=== PATIENT | male | born 1985 | race Caucasian/White ===

== ENCOUNTER 2021-12-28 09:45 | Emergency (ER) | payer OTHER, SELFPAY ==
[2021-12-28 09:55] VITALS: BP 174/108; PULSE 99; RESP 18; TEMP 36.7; O2SAT 100
--- NOTE | 2021-12-28 09:56 | ED.URI ---
HPI - URI/Sore Throat General Chief Complaint: Upper Respiratory Infection Stated Complaint: Sore Throat Time Seen by Provider: 12/28/21 10:00 History of Present Illness HPI Narrative: 36-year-old male presented for complaint of sore throat x3 days, with associated RAMÍREZ, body aches and nausea last night. He endorses a history of strep throat, has not had it for about 3 years. He has been gargling warm salt water and taking Tylenol. He denies sick contacts. Related Data Home Medications Medication Instructions Recorded Confirmed No Home Medications 12/28/21 12/28/21 Review of Systems Review of Systems: EYES: Denies visual changes, redness, or discharge. ENT: Denies rhinorrhea, congestion, or otalgia. CARDIOVASCULAR: Denies chest pain, palpitations, or edema. RESPIRATORY: Denies dyspnea. GASTROINTESTINAL: Denies abdominal pain, vomiting, or diarrhea. SKIN: Denies rash, itching, or wounds. MUSCULOSKELETAL: Denies back pain, joint pain Exam Narrative: GENERAL: well-appearing EYES: conjunctivae clear ENT: Mucous membranes moist. Oropharynx erythematous without lesions. Tonsils enlarged and without exudate. No drooling, no hoarseness, no trismus, uvula midline. No tripod positioning, hot potato voice, or soft palate swelling. NECK: Supple. right anterior lymphadenopathy CHEST: Clear to auscultation, breath sounds equal. HEART: Regular rate and rhythm. No murmur heard. SKIN: Warm, dry, no rash. NEURO: Alert and oriented x3. Course Course Emergency Course: Patient is aware of diagnosis, understands and agrees to treatment plan. Anticipatory guidance given. Patient agrees to follow-up as directed and is aware of reasons to seek care at the emergency department. Portions of this record may have been created with voice recognition software Level of Care: Express Care Visit MDM - URI/Sore Throat MDM Narrative Medical decision making narrative: Strep negative. Advised supportive measures and signs/symptoms to go to the ER. Pt is appropriate for outpt treatment and f/u. Differential Diagnosis Differential diagnosis: Likely upper respiratory infection, viral infection and pharyngitis Lab Data Labs: Strep Screen Presumptive Negative *(Reference Range: Negative)* Discharge Plan Discharge Clinical Impression: Pharyngitis Qualifiers: Pharyngitis/tonsillitis etiology: unspecified etiology Qualified Code(s): J02.9 - Acute pharyngitis, unspecified Patient Disposition: Home, Self-Care Condition: Stable Instructions: Antibiotic Form, Pharyngitis (ED) Additional Instructions: Rapid strep swab was negative today You will be notified in a few days if the culture comes back positive for strep, and appropriate antibiotics will be called in at that time. if symptoms are due to a viral illness, it is not treated with antibiotics. Viral symptoms can be present for up to 10-14 days. Tylenol 1000mg every 8 hours as needed for pain/fever Soft foods, cool liquids, warm tea. Gargle with warm saltwater twice a day. Chloraseptic spray and throat lozenges as needed. Rest and stay hydrated. --Follow up with your PCP if symptoms are not improving, or sooner if symptoms are worsening. Go to the ER immediately if you cannot swallow your saliva, trouble breathing/wheezing, throat swelling, pain is persistent and severe Prescriptions: No Action No Home Medications Follow-up/Referrals: Jesse,German Mosquera MD [Primary Care Provider] - Time of Disposition: 10:21
== END 2021-12-28 10:31 | disposition home or self-care (01) ==
PROVIDERS: Emergency Provider Nurse Practitioner Family; PCP Family Medicine
DX: J02.9 Acute pharyngitis, unspecified (principal)
CPT/HCPCS: 87081; 87880; 99203; G0463

== ENCOUNTER 2023-05-17 10:46 | Emergency (ER) | payer OTHER, SELFPAY ==
--- NOTE | 2023-05-17 11:03 | ECG_ITS ---
Measurements Intervals [place] Rate: 101 P: 61 MI: 137 QRS: 38 QRSD: 97 T: 56 QT: 331 QTc: 431 Interpretive Statements SINUS TACHYCARDIA MINIMAL Q WAVES- INFERIOR LEADS BASELINE ARTIFACT- I, III, AVL BORDERLINE ECG NO PREVIOUS ECG AVAILABLE FOR COMPARISON Electronically Signed On 05-17-2023 11:29:58 MILKING MACHINE MECHANIC by Gene Greenfield D.O.
--- NOTE | 2023-05-17 11:06 | ED.GENADULT ---
HPI - General Adult General Chief complaint: Dizziness Stated complaint: Dizziness Time Seen by Provider: 05/17/23 11:06 Source: patient, RN notes reviewed and old records reviewed Mode of arrival: ambulatory Limitations: no limitations History of Present Illness HPI narrative: 37-year-old male presents to the [facility] with complaints of dizziness for the last 2-3 days. States it feels like he is walking around drunk. Unable to work. States he has had some sinus congestion lately. Patient reports a very distant history of hypertension, has never taken medication. Denies any chest pain. Occasional shortness of breath. Denies fevers Onset (ago): day(s) (2-3) Related Data Home Medications Medication Instructions Recorded Confirmed No Home Medications 12/28/21 05/17/23 Allergies Allergy/AdvReac Type Severity Reaction Status Date / Time No Known Allergies Allergy Verified 05/17/23 11:05 Review of Systems Review of Systems: All systems reviewed & are unremarkable except as noted in HPI and below Constitutional: Constitutional: Reports no additional constitutional complaints Eyes: Eyes: Reports no additional eye complaints ENT: Reports system reviewed and no additional complaints, except as documented Cardiovascular: Cardiovascular: Reports no additional cardiovascular complaints, Denies chest pain and Denies dyspnea Respiratory: Respiratory: Reports no additional respiratory complaints, Denies chest congestion, Denies cough and Denies dyspnea Gastrointestinal: Gastrointestinal: Reports no additional gastrointestinal complaints, Denies abdominal pain, Denies nausea and Denies vomiting Musculoskeletal: Musculoskeletal: Reports no additional musculoskeletal complaints Integumentary/Breasts: Skin/Breast: Reports system reviewed and no additional complaints, except as docu Neurologic: Reports as per HPI and Reports dizziness Psychiatric: Psychiatric: Reports no additional psychiatric complaints Allergic/Immunologic: Allergic/Immunologic: Reports no additional allergic/immunologic complaints PMFSH Comments At the time of my signature, I reviewed and agree with the nursing past medical, surgical, social, and family history. There is no relevant family history pertinent to the patient complaint. Exam Const: General: cooperative, healthy appearing, comfortable, no acute distress, well developed, alert and well nourished Nutritional Appearance: well nourished Orientation/consciousness: patient oriented x3 Limitations: no limitations HENMT: Head: normal to inspection Ears: hearing grossly normal bilaterally, external ears normal, TM's normal bilaterally, EAC's normal, mastoids normal and no periauricular adenopathy Face/Nose/Sinus: Normal external nose present, Normal nares present, Normal nasal mucous membranes and turbinates present, normal facial exam and face symmetric Face and sinus: normal facial exam and face symmetric Mouth: Yes Normal oral and palatal mucosa present, Yes lip normal and Yes moist mucous membranes Throat: posterior oropharynx normal and uvula midline Eyes: General: appearance normal, both eyes and all related structures Alignment and Position: alignment normal Periorbital: periorbital findings normal Pupils: Equal, round and reactive pupils present EOM: EOMs intact bilaterally Neck: Neck: normal visual inspection, full ROM, no lymphadenopathy and no meningeal signs Chest: Chest palpation & inspection: normal inspection of the chest Resp: Effort & Inspection: normal respiratory effort and able to speak in complete sentences Auscultation: clear to auscultation bilaterally, no crackles, no rales, no rhonchi and no wheezes Cardio: Rate: regular rate Rhythm: regular rhythm Back/Spine/Pelvis: Cervical Spine: cervical ROM normal Skin: General skin exam: normal color and no rashes or lesions noted Lesions: no lesions Rashes: no rashes Wounds: no wounds Neuro: General: patient orient
[2023-05-17 11:10] VITALS: BP 209/117; PULSE 112; RESP 16; TEMP 37; O2SAT 100
== END 2023-05-17 11:14 | disposition short-term general hospital (02) ==
PROVIDERS: Emergency Provider Nurse Practitioner
DX: R42 Dizziness and giddiness (principal); R03.0 Elevated blood-pressure reading, without diagnosis of hypertension
CPT/HCPCS: 93005; 99213; G0463

== ENCOUNTER 2023-05-17 11:36 | Emergency (ER) | payer OTHER, SELFPAY ==
[2023-05-17] VITALS (12 sets, daily range): BP systolic 163–209; BP diastolic 114–136; PULSE 79–100; RESP 14–18; TEMP 36.2; O2SAT 97–100
--- NOTE | ~2023-05-17 | XR_ITS ---
XR chest 2V DATE: 05/17/2023 14:14 INDICATION: Cough, congestion, hypertension TECHNIQUE: PA and lateral views COMPARISON: None FINDINGS: Normal heart size. No hilar or mediastinal enlargement. No pulmonary infiltrate or consolid ation, pleural effusion or pulmonary vascular congestion or pneumothorax is detected. There is minimal thoracolumbar dextroscoliosis. There is gaseous distention of the included hepatic flexure, transverse colon, splenic flexure and pr oximal descending colon. No abnormal dilatation of the colon is noted. No intraperitoneal free air is detected. IMPRESSION: No active cardiopulmonary disease Reviewed, dictated and finalized at location L. ER OPERATOR
--- NOTE | ~2023-05-17 | CT_ITS ---
EXAMINATION: CT brain wo con DATE: 05/17/2023 14:10 INDICATION: Headache. TECHNIQUE: Computed tomography (CT) of the head was performed without intravenous contrast. The mA wa s adjusted according to patient size. Iterative reconstruction technique was employed. The dose-lengt h product was 605.33 mGy-cm. COMPARISON: None FINDINGS: There is no intracranial hemorrhage, acute infarction, or abnormal intracranial mass lesion . The ventricles are normal in size. The orbits are normal. There is mucosal thickening in the parana narciso sinuses. The mastoid air cells are normal. IMPRESSION: 1. Normal brain. Reviewed, dictated and finalized at location A. ER DEPARTMENT MANAGER IMPRESSION: 1. Normal brain.
--- NOTE | 2023-05-17 13:55 | ED.GENADULT ---
HPI - General Adult General Chief complaint: Recheck/Abnormal Lab/Rx Stated complaint: blood pressure issue Time Seen by Provider: 05/17/23 20:37 History of Present Illness HPI narrative: José Miguel Ch is a 37 y/o male with reported hx of HTN dx 5 years ago, has been off of medication for 3- 4years. He went to an today because he felt light headed/foggy thought he had sinus infection and his b/p was elevated and he was sent here. He reports of having chest heaviness off and on since yesterday along with shortness of breath He reports feeling headache today and felt dizzy and light headed. Related Data Allergies Allergy/AdvReac Type Severity Reaction Status Date / Time No Known Allergies Allergy Verified 05/17/23 11:44 Course Vital Signs Vital signs: Vital Signs Temperature 36.2 C L 05/17/23 11:41 Pulse Rate 100 05/17/23 11:41 Respiratory Rate 14 05/17/23 11:41 Blood Pressure 209/136 H 05/17/23 11:41 Pulse Oximetry 100 05/17/23 11:41 Oxygen Delivery Room Air 05/17/23 11:41 Temperature 36.2 C L 05/17/23 11:41 Pulse Rate 79 05/17/23 21:52 Respiratory Rate 15 05/17/23 21:52 Blood Pressure 163/114 H 05/17/23 21:52 Pulse Oximetry 100 05/17/23 21:52 Oxygen Delivery Room Air 05/17/23 20:53 Medical Decision Making Vital Signs Vital Signs: Vital Signs Temperature 36.2 C L 05/17/23 11:41 Pulse Rate 100 05/17/23 11:41 Respiratory Rate 14 05/17/23 11:41 Blood Pressure 209/136 H 05/17/23 11:41 Pulse Oximetry 100 05/17/23 11:41 Oxygen Delivery Room Air 05/17/23 11:41 Temperature 36.2 C L 05/17/23 11:41 Pulse Rate 79 05/17/23 21:52 Respiratory Rate 15 05/17/23 21:52 Blood Pressure 163/114 H 05/17/23 21:52 Pulse Oximetry 100 05/17/23 21:52 Oxygen Delivery Room Air 05/17/23 20:53 Lab Data 05/17/23 14:44 05/17/23 14:44 Labs: Lab Results 05/17/23 05/17/23 Range/Units 14:44 18:27 WBC 8.6 (4.5-10.0) K/mm3 RBC 5.54 (4.6-6.20) M/mm3 Hgb 16.0 (14.0-18.0) g/dL Hct 47.8 (42.0-52.0) % MCV 86.3 (80-100) fl MCH 28.9 (26-34) pg MCHC 33.5 (32-36) g/dl RDW 12.7 (11.5-14.5) % Plt Count 279 (150-375) k/mm3 MPV 9.2 (7.4-10.4) fl Immature Gran % (Auto) 0.3 (0-0.5) % Neut % (Auto) 65.4 (45.5-73.1) % Lymph % (Auto) 26.5 (18.3-44.2) % [place] % (Auto) 7.0 (2.6-8.5) % Eos % (Auto) 0.7 (0-4.4) % Baso % (Auto) 0.1 L (0.2-1.2) % Lymph # (Auto) 2.28 (0.9-3.2) K/mm3 [place] # (Auto) 0.6 (0.1-0.6) K/mm3 Eos # (Auto) 0.1 (0-0.3) K/mm3 Baso # (Auto) 0.0 (0.0-0.1) K/mm3 Abs Immat Gran (auto) 0.03 (0.00-0.031) K/mm3 Absolute Neuts (auto) 5.6 (1.3-6.7) K/mm3 Absolute Nucleated RBC 0.0 (0.0-0.012) K/mm3 Nucleated RBC % 0.0 (0.0-0.2) % Sodium Cancelled Potassium Cancelled Chloride Cancelled Carbon Dioxide Cancelled Anion Gap Cancelled BUN Cancelled Creatinine Cancelled Estim Creat Clear Calc Cancelled Estimated GFR Cancelled Glucose Cancelled Calcium Cancelled Total Bilirubin Cancelled AST Cancelled ALT Cancelled Alkaline Phosphatase Cancelled Troponin I < 0.012 < 0.012 (0.000-0.034) ng/mL Total Protein Cancelled Albumin Cancelled Lipase Cancelled Urine Color Yellow (Yellow) Urine Appearance Clear (Clear) Urine pH 5.5 (5.0-9.0) Ur Specific [place] 1.013 (1.001-1.035) Urine Protein Negative (Negative) mg/dL Urine Glucose (UA) Negative (Negative) mg/dL Urine Ketones Negative (Negative) mg/dL Ur Blood (Man) Negative (Negative) Urine Nitrate Negative (Negative) Urine Bilirubin Negative (Negative) Urine Urobilinogen 0.2 (<2.0) mg/dL Leukocyte Esterase Rfl Negative (Negative) MU/UL Discharge Plan Discharge Clinical Impression: Hypertension, Sinusitis Patient Disposition: Home, Self-Care
--- NOTE | 2023-05-17 13:59 | ECG_ITS ---
Measurements Intervals [place] Rate: 80 P: 45 DC: 130 QRS: 31 QRSD: 92 T: 69 QT: 365 QTc: 424 Interpretive Statements SINUS RHYTHM DELAYED PRECORDIAL R/S TRANSITION BORDERLINE ECG COMPARED TO ECG 05/17/2023 11:08:11 SINUS RHYTHM NOW PRESENT Electronically Signed On 05-17-2023 14:57:34 TELECOMMUNICATOR by Gene Greenfield D.O.
[2023-05-17 14:53] LABS: Basophils Percent Auto 0.1 % (0.2-1.2); Eosinophils Absolute Auto 0.1 K/mm3 (0-0.3); Eosinophils Percent Auto 0.7 % (0-4.4); Hematocrit 47.8 % (42.0-52.0); Immature Granulocyte Absolute 0.03 K/mm3 (0.00-0.031); Immature Granulocyte Percent A 0.3 % (0-0.5); Lymphocytes Absolute Auto 2.28 K/mm3 (0.9-3.2); Lymphocytes Percent Auto 26.5 % (18.3-44.2); Mean Corpuscular HGB Conc 33.5 g/dl (32-36); Mean Corpuscular Hemoglobin 28.9 pg (26-34); Mean Corpuscular Volume 86.3 fl (80-100); Mean Platelet Volume 9.2 fl (7.4-10.4); Monocytes Absolute Auto 0.6 K/mm3 (0.1-0.6); Neutrophils Absolute Auto 5.6 K/mm3 (1.3-6.7); Neutrophils Percent Auto 65.4 % (45.5-73.1); Platelet Count Result 279 k/mm3 (150-375); Red Blood Count 5.54 M/mm3 (4.6-6.20); Red Cell Distribution Width 12.7 % (11.5-14.5); White Blood Count 8.6 K/mm3 (4.5-10.0)
[2023-05-17 15:15] LABS: Troponin I < 0.012 ng/mL (0.000-0.034)
[2023-05-17 18:37] LABS: Appearance Urine Clear (Clear); Bilirubin Urine Negative (Negative); Blood Urine Negative (Negative); Color Urine Yellow (Yellow); Glucose Urine UA Negative (Negative); Ketones Urine Negative (Negative); Leukocyte Esterase Ur Negative LEU/UL (Negative); Nitrate Urine Negative (Negative); Protein Urine Negative (Negative); Specific Grav Ur 1.013 (1.001-1.035); Urobilinogen Urine 0.2 mg/dL (<2.0); pH Urine 5.5 (5.0-9.0)
[2023-05-17 18:41] LABS: Add Urine Microscopic? NO
[2023-05-17 18:58] LABS: Troponin I < 0.012 ng/mL (0.000-0.034)
--- NOTE | 2023-05-17 20:44 | ED.GENADULT ---
HPI - General Adult General Chief complaint: Recheck/Abnormal Lab/Rx Stated complaint: blood pressure issue Time Seen by Provider: 05/17/23 20:37 History of Present Illness HPI narrative: Pt sent to the ER from [facility] for HTN. Only complaint was sinus congestion for past 5 days.Pt has a h/o HTN and was on meds. Has been off BP meds for 4 years. Unsure what his BP is. Unsure was previous BP medication was. c/o mild sob and feeling off. Last took sudafed yesterday. Related Data Allergies Allergy/AdvReac Type Severity Reaction Status Date / Time No Known Allergies Allergy Verified 05/17/23 11:44 Review of Systems Review of Systems: ROS neg except for what is documented in the HPI Course Vital Signs Vital signs: Vital Signs Temperature 36.2 C L 05/17/23 11:41 Pulse Rate 100 05/17/23 11:41 Respiratory Rate 14 05/17/23 11:41 Blood Pressure 209/136 H 05/17/23 11:41 Pulse Oximetry 100 05/17/23 11:41 Oxygen Delivery Room Air 05/17/23 11:41 Temperature 36.2 C L 05/17/23 11:41 Pulse Rate 91 05/17/23 14:34 Respiratory Rate 16 05/17/23 14:34 Blood Pressure 194/126 H 05/17/23 14:34 Pulse Oximetry 100 05/17/23 14:34 Oxygen Delivery Room Air 05/17/23 11:41 Medical Decision Making Vital Signs Vital Signs: Vital Signs Temperature 36.2 C L 05/17/23 11:41 Pulse Rate 100 05/17/23 11:41 Respiratory Rate 14 05/17/23 11:41 Blood Pressure 209/136 H 05/17/23 11:41 Pulse Oximetry 100 05/17/23 11:41 Oxygen Delivery Room Air 05/17/23 11:41 Temperature 36.2 C L 05/17/23 11:41 Pulse Rate 91 05/17/23 14:34 Respiratory Rate 16 05/17/23 14:34 Blood Pressure 194/126 H 05/17/23 14:34 Pulse Oximetry 100 05/17/23 14:34 Oxygen Delivery Room Air 05/17/23 11:41 Lab Data 05/17/23 14:44 05/17/23 14:44 Labs: Lab Results 05/17/23 05/17/23 Range/Units 14:44 18:27 WBC 8.6 (4.5-10.0) K/mm3 RBC 5.54 (4.6-6.20) M/mm3 Hgb 16.0 (14.0-18.0) g/dL Hct 47.8 (42.0-52.0) % MCV 86.3 (80-100) fl MCH 28.9 (26-34) pg MCHC 33.5 (32-36) g/dl RDW 12.7 (11.5-14.5) % Plt Count 279 (150-375) k/mm3 MPV 9.2 (7.4-10.4) fl Immature Gran % (Auto) 0.3 (0-0.5) % Neut % (Auto) 65.4 (45.5-73.1) % Lymph % (Auto) 26.5 (18.3-44.2) % [place] % (Auto) 7.0 (2.6-8.5) % Eos % (Auto) 0.7 (0-4.4) % Baso % (Auto) 0.1 L (0.2-1.2) % Lymph # (Auto) 2.28 (0.9-3.2) K/mm3 [place] # (Auto) 0.6 (0.1-0.6) K/mm3 Eos # (Auto) 0.1 (0-0.3) K/mm3 Baso # (Auto) 0.0 (0.0-0.1) K/mm3 Abs Immat Gran (auto) 0.03 (0.00-0.031) K/mm3 Absolute Neuts (auto) 5.6 (1.3-6.7) K/mm3 Absolute Nucleated RBC 0.0 (0.0-0.012) K/mm3 Nucleated RBC % 0.0 (0.0-0.2) % Sodium Cancelled Potassium Cancelled Chloride Cancelled Carbon Dioxide Cancelled Anion Gap Cancelled BUN Cancelled Creatinine Cancelled Estim Creat Clear Calc Cancelled Estimated GFR Cancelled Glucose Cancelled Calcium Cancelled Total Bilirubin Cancelled AST Cancelled ALT Cancelled Alkaline Phosphatase Cancelled Troponin I < 0.012 < 0.012 (0.000-0.034) ng/mL Total Protein Cancelled Albumin Cancelled Lipase Cancelled Urine Color Yellow (Yellow) Urine Appearance Clear (Clear) Urine pH 5.5 (5.0-9.0) Ur Specific [place] 1.013 (1.001-1.035) Urine Protein Negative (Negative) mg/dL Urine Glucose (UA) Negative (Negative) mg/dL Urine Ketones Negative (Negative) mg/dL Ur Blood (Man) Negative (Negative) Urine Nitrate Negative (Negative) Urine Bilirubin Negative (Negative) Urine Urobilinogen 0.2 (<2.0) mg/dL Leukocyte Esterase Rfl Negative (Negative) MU/UL Discharge Plan Discharge Clinical Impression: Hypertension Qualifiers: Hypertension type: unspecified Qualified Code(s): I10 - Essential (primary) hyp
[2023-05-17] MEDS: cloNIDine HCL 0.2 MG TABLET PO (21:20)
[2023-05-17] MEDS: hydroCHLOROthiazide 25 MG TABLET PO (21:20)
== END 2023-05-17 21:53 | disposition home or self-care (01) ==
PROVIDERS: Nurse Practitioner Family; Emergency Provider Emergency Medicine
DX: I10 Essential (primary) hypertension (principal); J01.90 Acute sinusitis, unspecified; R94.31 Abnormal electrocardiogram [ECG] [EKG]
CPT/HCPCS: 36415; 70450; 71046; 81003; 84484; 85025; 93005; 99284; A9270

== ENCOUNTER 2023-09-06 08:13 | Emergency (ER) | payer OTHER, SELFPAY ==
[2023-09-06 08:23] VITALS: BP 141/98; PULSE 105; RESP 16; TEMP 37.6; O2SAT 99
--- NOTE | 2023-09-06 08:31 | ED.GENADULT ---
HPI - General Adult General Chief complaint: Upper Respiratory Infection Stated complaint: fever,chills, sore throat Time Seen by Provider: 09/06/23 08:31 Source: patient Mode of arrival: ambulatory Limitations: no limitations History of Present Illness HPI narrative: 38-[facility] complaint of fever, chills, sore throat since yesterday. Patient reports that became acutely worse she then woke him from his sleep last night. Patient treated with Benadryl and severe [id number] sinus medication with no relief. Patient denies allergies needed. Patient reports history of complicated tonsillitis with hospitalization 5 years ago. Patient speaking in full sentences, no shortness of breath she says, a 2nd tracheal secretion is able to tolerate fluids by mouth. Related Data Home Medications Medication Instructions Recorded Confirmed amlodipine 10 mg tablet 10 mg PO DAILY 09/06/23 09/06/23 Allergies Allergy/AdvReac Type Severity Reaction Status Date / Time No Known Allergies Allergy Verified 09/06/23 08:41 Review of Systems Review of Systems: All systems reviewed & are unremarkable except as noted in HPI and below Constitutional: Constitutional: Reports body ache(s), Reports chills and Reports fever(s) Eyes: Eyes: Reports no additional eye complaints ENT: Reports sore throat Cardiovascular: Cardiovascular: Reports no additional cardiovascular complaints, Denies chest pain and Denies dyspnea Respiratory: Respiratory: Reports no additional respiratory complaints, Denies cough and Denies dyspnea Musculoskeletal: Musculoskeletal: Reports no additional musculoskeletal complaints Neurologic: Reports system reviewed and no additional complaints, except as documented Psychiatric: Psychiatric: Reports no additional psychiatric complaints PMFSH Comments At the time of my signature, I reviewed and agree with the nursing past medical, surgical, social, and family history. There is no relevant family history pertinent to the patient complaint. Exam Const: General: cooperative, healthy appearing, comfortable, no acute distress, alert, awake, tired appearing and well nourished Nutritional Appearance: well nourished Orientation/consciousness: patient oriented x3 Limitations: no limitations HENMT: Head: normal to inspection Ears: external ears normal Face/Nose/Sinus: Normal external nose present, Normal nares present, normal facial exam, No erythema and No edema Face and sinus: normal facial exam, no erythema and no edema Mouth: Yes Normal oral and palatal mucosa present Throat: abnormal tonsil bilateral hypertrophy 2+, posterior oropharynx abnormal edema and erythema and no uvular edema Eyes: General: appearance normal, both eyes and all related structures Neck: Neck: normal visual inspection, full ROM and no meningeal signs Lymphatic: no lymphadenopathy noted and no lymphedema noted Chest: Chest palpation & inspection: normal inspection of the chest Resp: Effort & Inspection: normal respiratory effort and able to speak in complete sentences Auscultation: clear to auscultation bilaterally Cardio: Jugular venous distension: no JVD Rate: regular rate Rhythm: regular rhythm Back/Spine/Pelvis: Cervical Spine: cervical ROM normal Skin: General skin exam: normal color, no rashes or lesions noted and turgor normal Neuro: General: patient oriented x3, gait normal, moves all extremities and no meningeal signs Speech: normal speech Gait exam (Neuro): Normal gait present Extrem: General: normal to inspection, full ROM and capillary refill normal Psych: Appearance: grossly normal and well kempt Course Course Emergency Course: Some parts of this dictation were generated by voice recognition software and may contain typographical and/or grammatical inaccuracies. Level of Care: Express Care Visit Vital Signs Vital signs: Vital Signs Temperature 37.6 C H 09/06/23 08:23 P
== END 2023-09-06 09:11 | disposition home or self-care (01) ==
PROVIDERS: Emergency Provider Nurse Practitioner Family
DX: J03.90 Acute tonsillitis, unspecified (principal); I10 Essential (primary) hypertension
CPT/HCPCS: 87081; 87880; 99213; G0463